=== PATIENT | female | born 1950 | race Caucasian/White ===

== ENCOUNTER 2020-09-29 12:07 | Observation (INO) | payer BC, MEDICARE ==
[~2020-09-29] VITALS: Ht 172.7 cm; Wt 84.0 kg
--- NOTE | 2020-09-29 12:21 | NUR ---
NAVNEET, EMS REPORTS PT TRIPPED OVER SUITCASE AT [facility] AND FELL ON L SIDE. DENIES LOSS OF CONSCIOUSNESS OR ANY TRAUMA. C/O PAIN IN L HIP RADIATING DOWN L THIGH. CMS INTACT, NO BLEEDING. PT A&O, RESPS EVEN AND UNLABORED, NADN. ERPA AT BEDSIDE FOR EVAL.
[2020-09-29] MEDS ORDERED: ONDANSETRON 2MG/ML, 2ML IVPush ONE (12:30)
[2020-09-29] MEDS ORDERED: SODIUM CHLORIDE FLUSH 10ML SYR IVF ONE (12:30)
--- NOTE | 2020-09-29 12:43 | NUR ---
PT back from imaging, pillow provided for comfort. Call light in reach.
--- NOTE | 2020-09-29 13:35 | NUR ---
ERMD AT BEDSIDE TO DISCUSS POC.
[2020-09-29] MEDS ORDERED: ONDANSETRON 2MG/ML, 2ML ONE (13:56)
[2020-09-29] MEDS ORDERED: MORPHINE SULFATE 4 MG/ML, 1ML ONE ×2 (13:56→16:18)
[2020-09-29] MEDS: MORPHINE SULFATE 4 MG/ML, 1ML IVPush PRN ×2 (13:59→16:20)
--- NOTE | 2020-09-29 14:10 | NUR ---
ASSISTANCE PROVIDED FOR BEDPAN, PT ABLE TO VOID. MEDICATED PER ORDER FOR PAIN, PT TOLERATED WELL.
--- NOTE | 2020-09-29 15:13 | NUR ---
ERMD AT BEDSIDE TO DISCUSS POC
--- NOTE | 2020-09-29 16:15 | NUR ---
PT SITTING IN BED, VSS, NADN. AWAITING IMAGING.
[2020-09-29] MEDS ORDERED: morphine SULFATE 10 MG/ML, 1ML IVPush PRN (16:30)
[2020-09-29] MEDS ORDERED: ONDANSETRON 2MG/ML, 2ML IVPush PRN (16:30)
[2020-09-29] MEDS ORDERED: ACETAMINOPHEN 325 MG TABLET PO PRN (16:30)
[2020-09-29] MEDS ORDERED: BISACODYL 10 MG SUPP PR PRN (16:30)
[2020-09-29] MEDS ORDERED: POLYETHYLENE GLYCOL 17 GM PACKET PO PRN (16:30)
[2020-09-29] MEDS ORDERED: DOCUSATE 100 MG CAPSULE PO PRN (16:30)
[2020-09-29] MEDS ORDERED: PLEASE ENTER ALLERGIES MC SCH (17:00)
--- NOTE | 2020-09-29 17:12 | NUR ---
REPORT GIVEN TO RECEIVING JUAN MANUEL NUNEZ IN [address]
[2020-09-29 18:24] VITALS: BP 115/68
[2020-09-29] MEDS: HYDROcodone/APAP 5/325 TABLET PO PRN (21:05)
[2020-09-29] MEDS: HEPARIN 5,000 UNITS/ML, 1ML SQ SCH (21:06)
[2020-09-30] MEDS: HYDROcodone/APAP 5/325 TABLET PO PRN ×3 (02:21→13:55)
[2020-09-30 02:32] VITALS: BP 153/77
[2020-09-30 04:59] LABS: BASOPHILS % (AUTO) 1 % (0-1); EOSINOPHILS % (AUTO) 1 % (1-7); LYMPHOCYTES % (AUTO) 30 % (22-44); MEAN CORPUSCULAR HEMOGLOBIN 31.3 pg (27.0-34.8); MEAN CORPUSCULAR HGB CONC 33.8 g/dL (32.4-35.8); MEAN PLATELET VOLUME 8.3 fL (7.4-10.4); MONOCYTES % (AUTO) 9 % (2-9); NEUTROPHILS % (AUTO) 60 % (42-75); PLATELET COUNT 179 x10^3/uL (130-400); RED BLOOD COUNT 3.57 x10^6/uL (3.82-5.3)
[2020-09-30 05:01] LABS: MD NO
[2020-09-30 05:12] LABS: ALBUMIN 3.2 g/dL (3.4-5.0); ANION GAP 4 mmol/L (5-15); CALCIUM 8.2 mg/dL (8.5-10.1); CHLORIDE 110 mmol/L (98-107)
[2020-09-30 05:23] LABS: ALANINE AMINOTRANSFERASE 20 U/L (12-78); ALKALINE PHOSPHATASE 67 U/L (45-117); BILIRUBIN,TOTAL 0.2 mg/dL (0.2-1.0); TOTAL PROTEIN 5.8 g/dL (6.4-8.2)
[2020-09-30] MEDS: HEPARIN 5,000 UNITS/ML, 1ML SQ SCH ×2 (06:15→12:00)
[2020-09-30 06:55] VITALS: BP 129/84
[2020-09-30] MEDS ORDERED: EZET10TA70 PO (12:46)
[2020-09-30] MEDS ORDERED: SERT50TA28 PO (12:46)
[2020-09-30] MEDS ORDERED: OXYB5TAB10 PO (12:46)
[2020-09-30] MEDS ORDERED: SITA100T PO (12:47)
[2020-09-30] MEDS ORDERED: LANS30CA PO (12:47)
[2020-09-30] MEDS ORDERED: HYDR-2214 PO (12:49)
[2020-09-30 14:30] VITALS: BP 141/74
== END 2020-09-30 15:33 | disposition home or self-care (01) ==
LOC: ED 14:16 → EDIP 16:29 → 4NW 18:18 → DCLOUNGE 09-30 15:30
PROVIDERS: ADMIT Family Medicine; ATTEND Family Medicine
DX: S71.002A Unspecified open wound, left hip, initial encounter (principal); S70.02XA Contusion of left hip, initial encounter; G89.11 Acute pain due to trauma; E11.9 Type 2 diabetes mellitus without complications; I10 Essential (primary) hypertension; E78.5 Hyperlipidemia, unspecified; G89.4 Chronic pain syndrome; E78.00 Pure hypercholesterolemia, unspecified; W01.0XXA Fall on same level from slipping, tripping and stumbling without subsequent striking against object, initial encounter; Y93.89 Activity, other specified; Y92.89 Other specified places as the place of occurrence of the external cause; Z66 Do not resuscitate; Z87.891 Personal history of nicotine dependence; Z90.710 Acquired absence of both cervix and uterus; Z98.1 Arthrodesis status; Z79.899 Other long term (current) drug therapy
CPT/HCPCS: 36415; 72110; 72195; 73502; 73700; 80053; 84443; 85025; 96372; 96374; 96375; 96376; 97163; 97530; 99285; G0378; J1644; J2270; J2405